=== PATIENT | female | born 1955 | race Caucasian/White ===

== ENCOUNTER 2017-10-01 06:33 | Emergency (ER) | payer MEDICARE, BC ==
[~2017-10-01] VITALS: Ht 160 cm; Wt 113.6 kg
[2017-10-01] MEDS ORDERED: VITA1CAP40 PO (06:46)
[2017-10-01] MEDS ORDERED: AMLO10TA2 PO (06:46)
[2017-10-01] MEDS ORDERED: VALS1TAB48 PO (06:46)
[2017-10-01] MEDS ORDERED: CARV3.12 PO (06:46)
[2017-10-01] MEDS ORDERED: PRAV20TA2 PO (06:46)
[2017-10-01 07:11] LABS: EOS # 0.2 10^3/uL (0.0-0.50); EOS % 2.4 % (0.0-3.0); IMMATURE GRANULOCYTE % 0.4 % (0-0); LYMPH # 2.1 10^3/uL (1.5-4.5); LYMPH % 21.1 % (24.0-44.0); MEAN CORPUSCULAR HEMOGLOBIN 24.8 pg (27.0-33.0); MEAN CORPUSCULAR HGB CONC 31.3 g/dl (32.0-36.5); MEAN CORPUSCULAR VOLUME 79.3 fl (80.0-96.0); MONO # 0.9 10^3/uL (0.0-0.8); MONO % 8.6 % (0.0-5.0); NEUTROPHILS # 6.8 10^3/uL (1.8-7.7); NEUTROPHILS % 67.5 % (36.0-66.0); PLATELET COUNT, AUTOMATED 319 10^3/uL (150-450); RED CELL DISTRIBUTION WIDTH 17.4 % (11.5-14.5)
[2017-10-01 07:33] LABS: ANION GAP 6 MEQ/L (8-16); BLOOD UREA NITROGEN 18 MG/DL (7-18); CARBON DIOXIDE LEVEL 28 MEQ/L (21-32); CHLORIDE LEVEL 107 MEQ/L (98-107); CREATININE FOR GFR 0.66 MG/DL (0.55-1.02); GLOMERULAR FILTRATION RATE > 60.0 (>51); GLUCOSE, FASTING 106 MG/DL (70-105); POTASSIUM SERUM 3.8 MEQ/L (3.5-5.1); SODIUM LEVEL 141 MEQ/L (136-145)
[2017-10-01] MEDS ORDERED: ASPIRIN 81 MG CHEW TABLET PO ONE (07:45)
[2017-10-01] MEDS ORDERED: CARVedilol 3.125 MG TAB PO ONE (07:45)
[2017-10-01] MEDS ORDERED: VALSARTAN 80 MG TAB (DIOVAN) PO ONE (07:45)
[2017-10-01 07:48] LABS: ALBUMIN 3.8 GM/DL (3.2-5.2); ALBUMIN/GLOBULIN RATIO 0.93 (1.00-1.93); BILIRUBIN,DIRECT 0.2 MG/DL (0.0-0.2); BILIRUBIN,TOTAL 0.7 MG/DL (0.2-1.0); TOTAL PROTEIN 7.9 GM/DL (6.4-8.2)
[2017-10-01] MEDS ORDERED: CARVedilol 6.25 MG TAB As Ordered ONE (08:05)
--- NOTE | 2017-10-01 08:21 | REP ---
Clinical: Chest pain . Comparison: None . Technique: PA and lateral. Findings: The mediastinum and cardiac silhouette are normal. The lung rodriguez are clear and without acute consolidation, effusion, or pneumothorax. The skeletal structures are intact and normal. Impression: 1. No acute cardiopulmonary process. Signed by Fernando Cox MD 10/01/2017 08:13 A
[2017-10-01] MEDS ORDERED: ASPI1TAB PO (10:46)
[2017-10-01 11:01] VITALS: BP 129/74
--- NOTE | 2017-10-02 09:04 | ECGEPIP ---
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
--- NOTE | 2017-10-02 09:04 | ECGEPIP ---
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
== END 2017-10-01 11:09 | disposition home or self-care (01) ==
LOC: M ED 06:33
DX: R07.89 Other chest pain (principal); I10 Essential (primary) hypertension; E78.00 Pure hypercholesterolemia, unspecified; Z98.61 Coronary angioplasty status; Z87.891 Personal history of nicotine dependence; Z79.899 Other long term (current) drug therapy; Z98.84 Bariatric surgery status